=== PATIENT | male | born 1960 | race Caucasian/White ===

== ENCOUNTER 2021-06-13 02:35 | Outpatient (CLI) | payer OTHER, SELFPAY ==
--- NOTE | 2021-06-13 15:04 | DI.RAD_ITS ---
Exam(s) XR KNEE LT 3V AP,LAT,DAVID EXAM: XR KNEE LT 3V AP,LAT,DAVID CLINICAL HISTORY: [id number],LT KNEE PAIN,M25.562. TECHNIQUE: 2D digital imaging was performed. COMPARISON: No exams were available for comparison FINDINGS: No evidence of fracture or obvious joint effusion. Mild degenerative changes in the medial compartme nt. No osseous lesions. Bone density normal. IMPRESSION: DATA REPOSITORY: RADIATION DOSE DELIVERED:
== END 2021-06-13 02:55 ==
PROVIDERS: PCP General Practice; Visit Provider Occupational Therapist
DX: M25.562 Pain in left knee (principal); M17.12 Unilateral primary osteoarthritis, left knee
CPT/HCPCS: 73562

== ENCOUNTER 2024-06-30 08:20 | Emergency (ER) | payer OTHER, SELFPAY ==
[2024-06-30] VITALS (16 sets, daily range): BP systolic 140–172; BP diastolic 74–83; PULSE 72–101; RESP 15–21; TEMP 36.6; O2SAT 96–99
--- NOTE | 2024-06-30 08:15 | RT.EKG_ITS ---
APPROVED REPORT Exam: Resting ECG Reason for Exam: chest pain Patient Location: E HR:81 bpm ECG Measurements Heart Rate 81 AXIS NJ 117 P 3 QRSd 78 QRS 71 QT 356 T 72 QTc 413 Conclusion Sinus rhythm 81 normal axis no stemi
--- NOTE | 2024-06-30 08:42 | ED.GENADUL_ITS ---
Discharge Plan Disposition Patient Disposition: Home Condition: Stable Discharge Details Clinical Impression: Abdominal pain Primary Care Provider: Nina Diggs ED Provider: Lucila Cunningham Home Meds and New Rx's Prescriptions: No Action losartan 100 MG tablet 100 mg PO DAILY rosuvastatin [Crestor] 5 mg tablet 5 mg PO DAILY omeprazole 40 mg capsule,delayed release(DR/EC) 40 mg PO DAILY Discharge Instructions Instructions: Abdominal Pain, Adult ED Additional Instructions: Your blood work and chest x-ray are all reassuring. Your symptoms seem to have resolved. Recommend close follow-up with your PCP. Return to the emergency department if you have return of symptoms, worsening symptoms or any other concerns. HPI General Date/Time Provider Initiated Documentation: 06/30/24 08:35 . Limitations to Documentation: no limitations . Information obtained by: patient . HPI Narrative: 63-year-old gentleman with past medical history of hypertension, hyperlipidemia presents for evaluation of abdominal pain. He reports that it has been ongoing for the last few days and has gotten worse last night. Does have history of hiatal hernia. Denies any radiation into his chest or associated shortness of breath. No fever. No vomiting or diarrhea. Reports some tingling in his hand. Reports that he has had had cough. The cough makes him vomit, but he has not had vomiting independent of the cough. Related Data Home Medications ?Medication ?Instructions ?Recorded ?Confirmed losartan 100 mg tablet 100 mg PO DAILY 05/12/17 06/30/24 omeprazole 40 mg capsule,delayed 40 mg PO DAILY 06/30/24 06/30/24 release rosuvastatin 5 mg tablet (Crestor) 5 mg PO DAILY 06/30/24 06/30/24 Allergies Allergy/AdvReac Type Severity Reaction Status Date / Time No Known Drug Allergies Allergy Unknown Unverified 11/13/23 09:56 General Stated Complaint: Chest Pain MONICA: 2 Exam Narrative Exam Narrative: Review of Systems: All systems reviewed & are unremarkable except as noted in HPI and below Well-developed, no acute distress NCAT PERRL, normal conjunctiva RRR no mumur Unlabored respiratory effort CTAB Nondistended abdomen , soft n/t Extremities w/o edema no focal neurologic deficits Appropriate mood and affect Course Vital Signs Vital signs: Vital Signs Temperature 36.6 C 06/30/24 08:24 Pulse 84 06/30/24 08:24 Respiratory Rate 18 01/31/25 08:24 Blood Pressure 172/83 H 06/30/24 08:24 Pulse Oximetry 99 06/30/24 08:24 Temperature 36.6 C 06/30/24 08:24 Temperature Source Oral 06/30/24 08:24 Pulse 84 06/30/24 08:24 Respiratory Rate 18 06/30/24 08:24 Blood Pressure 172/83 H 06/30/24 08:24 Blood Pressure Position Sitting 06/30/24 08:24 Pulse Oximetry 99 06/30/24 08:24 Oxygen Delivery Method Room Air 06/30/24 08:24 Oxygen Flow Rate 0 06/30/24 08:24 Pain Level 8 06/30/24 08:24 Medical Decision Making Emergent evaluation of abdominal pain. Initial differential includes pancreatitis, hernia, pneumonia, ACS. EKG without acute ischemic changes. Patient is hemodynamically stable. Abdominal examination is benign. Lab work was obtained, there is no leukocytosis or anemia. Renal function is 1.7 and there is no prior for comparison. No other significant electrolyte derangement. Lipase is not elevated. A chest x-ray was obtained and this did not reveal a focal consolidation. He was had viral testing today that was negative. Patient's symptoms seem to have resolved. At this time feel he stable for discharge home after serial cardiac enzymes were negative. Recommend close follow-up with PCP and return precautions were advised. Quality:SDOH Health Related Social Needs: No Data to Display PFSH All Active Problems (Updated 06/30/24 @ 10:22 by Lucila Cunningham MD) Abdominal pain (Acute) Medical History Sensorineural hearing loss (SNHL) of both ears GERD (gastroesophageal reflux disease) Essential hypertension H/O diplopia Daily headache Carpal tunnel syndrome, bilateral upper limbs Alcohol abuse Adjustment disorder with depressed mood Social History Smoking/Tobacco Use Status: Never Smoking risk assessment performed?: Yes Alcohol Intake: current Alcohol Intake frequency: 3 or more drinks per day Alcohol type: hard liquor Drug use: Never Substance use type: does not use Household members: spouse and family Number of Children: 3 number of grandchildren: 8 Pets and animals: Yes Pets and animals: cat(s) and dog(s) What is your relationship status?: Panel score (0-1 are the most socially isolated patients): 1 What type of physical activity do you participate in: walking Seatbelt use: never PAWSS Have you Been Recently Intoxicated or Drunk Within the Last 30 days?: Yes Have you Ever Experienced Previous Episodes of Alcohol Withdrawal?: No Have you ever Experienced Withdrawal Seizures?: No Have you ever Experienced Delirium Tremens(DT)s?: No Have you ever undergone Alcohol Rehabilitation Treatment (i.e, inpt ot outpatient treatment programs)?: No Have you ever Experienced Blackouts?: No Have you ever Combined Alcohol with other Downers within the last 90 days?: No Have you ever Combined Alcohol with any other Substance of Abuse during the last 90 days?: No Positive Blood Alcohol level on Presentation? [PCS.BAL]: No Evidence of Increased Autonomic Activity (i.e. HR>120, tremor, sweating, agitation, nausea)?: No Result: 1
[2024-06-30 08:44] LABS: Abs Immature Grans 0.01 10^3/uL (0.0-0.06); Absolute Basophil Count 0.05 10^3/uL (0.0-0.2); Absolute Monocyte Count 0.48 10^3/uL (0.1-0.8); Absolute Neutrophil Count 3.14 10^3/uL (1.2-6.7); HCT 40.5 % (40.0-50.0); HGB 14.2 g/dL (13.5-17.5); Immature Grans % 0.2 %; Lymphocytes % 18.1 %; MCH 31.1 pg (27.0-33.0); MCHC 35.1 % (32.0-36.0); MCV 89 fL (80-95); MPV 8.9 fL (8.0-11.0); Monocytes % 9.6 %; Neutrophils % 63.1 %; Platelet Count 128 10^3/uL (130-400); RBC 4.56 10^6/uL (4.36-5.78); RDW 12.8 % (11.8-14.1); WBC 4.98 10^3/uL (4.4-10.8)
[2024-06-30] MEDS: Aspirin 81 MG CHEW 324 MG CH (08:54)
[2024-06-30] MEDS: Ondansetron 4 MG/2 ML VIAL IVP (08:54)
[2024-06-30 09:03] LABS: ALT 29 U/L (16-63); AST 40 U/L (15-37); Alkaline Phosphatase 90 U/L (46-116); Anion Gap 11.6 mmol/L (3-11); BUN 12 mg/dL (7-18); Bilirubin, Total 1.05 mg/dL (0.2-1.0); CO2 25.4 mmol/L (21.0-32.0); CREATININE 1.7 mg/dL (0.70-1.30); Chloride 104 mmol/L (98-107); Estimated GFR 44.74 (mL/min/1.73m2); Glucose 121 mg/dL (74-106); Lipase 36 U/L (<78); Potassium 3.9 mmol/L (3.5-5.1); Sodium 141 mmol/L (136-145); Total Protein 7.5 g/dL (6.4-8.2); Troponin I 8 ng/L (<or=76)
[2024-06-30 09:07] LABS: Calcium 8.7 mg/dL (8.5-10.1)
--- NOTE | 2024-06-30 09:15 | DI.RAD_ITS ---
Exam(s) XR CHEST 2V PA LATERAL EXAM: XR CHEST 2V PA LATERAL CLINICAL HISTORY: Chest pain TECHNIQUE: 2D digital imaging was performed of the chest. Two images were obtained. PA and lateral views were obtained. COMPARISON: No exams were available for comparison FINDINGS: MEDIASTINUM: Normal. HEART: Normal. PULMONARY VASCULATURE: Normal. LUNGS: Clear. PLEURAL SPACE: No pleural effusion or pneumothorax. BONE:Within normal limits for the patient's age. OTHER FINDINGS:Normal. IMPRESSION: No acute pulmonary findings. DATA REPOSITORY: RADIATION DOSE DELIVERED:
[2024-06-30 10:06] LABS: Troponin I 7 ng/L (<or=76)
== END 2024-06-30 10:32 | disposition home or self-care (01) ==
PROVIDERS: Emergency Provider Emergency Medicine; PCP General Practice
DX: R10.9 Unspecified abdominal pain (principal); M79.602 Pain in left arm; R05.1 Acute cough; I10 Essential (primary) hypertension; Z87.19 Personal history of other diseases of the digestive system
CPT/HCPCS: 36415; 80053; 83690; 93005; 99284; 71046; 84484; 85025; 93010; J2405

== ENCOUNTER 2024-12-25 15:06 | Emergency (ER) | payer OTHER, SELFPAY ==
--- NOTE | 2024-12-25 15:15 | DI.RAD_ITS ---
Exam(s) XR ELBOW LT COMPLETE EXAM: XR ELBOW LT COMPLETE CLINICAL HISTORY: pain s/p fall. TECHNIQUE: 2D digital imaging was performed. Three views. COMPARISON: No exams were available for comparison FINDINGS: BONES: No acute fracture is present. No bony destructive lesion is seen. JOINTS: The elbow is normally aligned. No joint effusion is seen. SOFT TISSUE: Posteromedial soft tissue swelling. IMPRESSION: Soft tissue swelling. No acute bony abnormality. DATA REPOSITORY: RADIATION DOSE DELIVERED:
[2024-12-25 15:19] VITALS: BP 166/81; PULSE 92; RESP 13; TEMP 36.4; O2SAT 96
[2024-12-25 17:06] VITALS: BP 148/68; PULSE 89; RESP 18; TEMP 36.7; O2SAT 96
--- NOTE | 2024-12-25 22:11 | W.ED.GENAD ---
Discharge Plan Disposition Patient Disposition: Home Condition: Stable Discharge Details Clinical Impression: Infection of right olecranon bursa Primary Care Provider: Nina Diggs ED Provider: Stephanie Sinclair Home Meds and New Rx's Prescriptions: New clindamycin HCl [Cleocin HCl] 150 mg capsule 450 mg PO TID Qty: 90 0RF Continued losartan 100 MG tablet 100 mg PO DAILY multivitamin [Daily Multi-Vitamin] Tablet 1 tab PO DAILY rosuvastatin [Crestor] 5 mg tablet 5 mg PO DAILY omeprazole 40 mg capsule,delayed release(DR/EC) 40 mg PO DAILY Discharge Instructions Instructions: Bursitis (DC) Additional Instructions: take antibiotics as prescribed wash with soap and water daily elevate and compresses warm compresses recheck in 48 hours return with spreading redness, fever, worsening pain Referrals: Nina Diggs [Primary Care Provider, Medicine] Discharge Data Discharge Date/Time-TO BE ENTERED AT DEPARTURE: 12/25/24 17:07 HPI General Date/Time Provider Initiated Documentation: 12/25/24 15:26. HPI Narrative: 64-year-old male with left elbow swelling and redness after a fall and laceration on Wednesday. Tetanus up to date. No fever or chills. Clear drainage from elbow. Related Data Home Medications ?Medication ?Instructions ?Recorded ?Confirmed losartan 100 mg tablet 100 mg PO DAILY 05/12/17 12/25/24 omeprazole 40 mg capsule,delayed 40 mg PO DAILY 06/30/24 12/25/24 release rosuvastatin 5 mg tablet (Crestor) 5 mg PO DAILY 06/30/24 12/25/24 clindamycin HCl 150 mg capsule 450 mg (3 x 150 mg) PO TID #90 caps 12/25/24 (Cleocin HCl) multivitamin (Daily Multi-Vitamin 1 tab PO DAILY 12/25/24 12/25/24 tablet) Previous Rx's ?Medication ?Instructions ?Recorded clindamycin HCl 150 mg capsule 450 mg (3 x 150 mg) PO TID #90 caps 12/25/24 (Cleocin HCl) Allergies Allergy/AdvReac Type Severity Reaction Status Date / Time No Known Drug Allergies Allergy Unknown Unverified 12/25/24 15:23 General Stated Complaint: Laceration MONICA: 3 Exam Narrative Exam Narrative: General Appearance: Normal. Vital signs: Within normal limits. HEENT: Within normal limits. Respiratory: Within normal limits. Back, Musculoskeletal: Full range of motion. Extremities: Laceration over left olecranon bursa. Swelling and redness in forearm. Skin: Warm and dry, no rash. Neurological: Normal. Course Vital Signs Vital signs: Vital Signs Temperature 36.4 C 12/25/24 15:19 Pulse 92 H 12/25/24 15:19 Respiratory Rate 13 12/25/24 15:19 Blood Pressure 166/81 H 12/25/24 15:19 Pulse Oximetry 96 12/25/24 15:19 Temperature 36.7 C 12/25/24 17:06 Temperature Source Oral 12/25/24 15:19 Pulse 89 12/25/24 17:06 Respiratory Rate 18 12/25/24 17:06 Blood Pressure 148/68 H 12/25/24 17:06 Pulse Oximetry 96 12/25/24 17:06 Oxygen Delivery Method Room Air 12/25/24 15:19 Oxygen Flow Rate 0 12/25/24 15:19 Pain Level 3 12/25/24 17:06 Medical Decision Making Initial Assessment: 64-year-old male with left elbow swelling and redness after fall and laceration. No fever or chills. Clear drainage from elbow. Full range of motion. Differential Diagnosis: - Infection: Redness and swelling. Culture sent. Started on clindamycin. - Olecranon bursitis: Swelling and redness. Pressure dressing applied. Sling provided. ED Course: - Culture sent. - Pressure dressing applied. - Started on clindamycin. - Sling provided. - Return precautions reviewed. - Discharged home in stable condition. Final Assessment: Culture sent. Pressure dressing applied. Started on clindamycin. Sling provided. Return precautions reviewed. Discharged home in stable condition. Clinical Impression: - Left elbow swelling - Infection - Olecranon bursitis Disposition: - Discharged home in stable condition. - Follow-Up: 48-hour recheck encouraged. Patient Education: Return precautions reviewed. Patient expressed understanding. PFSH All Active Problems (Updated 12/25/24 @ 16:59 by MARKOS Barker) Infection of right olecranon bursa (Acute) Medical History Sensorineural hearing loss (SNHL) of both ears GERD (gastroesophageal reflux disease) Essential hypertension H/O diplopia Daily headache Carpal tunnel syndrome, bilateral upper limbs Alcohol abuse Adjustment disorder with depressed mood Social History Smoking/Tobacco Use Status: Never Smoking risk assessment performed?: Yes Alcohol Intake: current Alcohol Intake frequency: 3 or more drinks per day Alcohol type: hard liquor Drug use: Never Substance use type: does not use Household members: spouse and family Number of Children: 3 number of grandchildren: 8 Pets and animals: Yes Pets and animals: cat(s) and dog(s) What is your relationship status?: Panel score (0-1 are the most socially isolated patients): 1 What type of physical activity do you participate in: walking Seatbelt use: never
--- NOTE | 2024-12-26 14:06 | W.ED.FU ---
Date of service: 12/26/24 Time of Service: 14:07 Follow Up Plan: Patient seen in the emergency department for bursitis of the elbow, had a culture which is showing rare gram-positive cocci growing in the culture. The patient was appropriately started on clindamycin, no acute intervention required. Elizabeth Obrien MD
== END 2024-12-25 17:07 | disposition home or self-care (01) ==
PROVIDERS: Emergency Provider Physician Assistant; PCP General Practice
DX: M71.121 Other infective bursitis, right elbow (principal)
CPT/HCPCS: 99283; 99284; 87077; 73080; 87070; 87186; 87205